=== PATIENT | female | born 1985 | race Caucasian/White ===

== ENCOUNTER → 2017-12-02 10:11 | Outpatient (CLI) | payer BC, SELFPAY ==
--- NOTE | 2017-12-02 10:15 | BI_ITS ---
MAMMOGRAPHY - BILATERAL SCREENING REASON FOR EXAM: Female, 32 years old. Routine annual screening examination. PERTINENT HISTORY: FM HX MOTHER 30, MAT GMA 69, STARTED PROGESTERONE CREAM YESTERDAY (12-01-17), GAIN 10# SINCE 2012 MAMMO-PT ALSO GAVE TWICE SINCE 2012 , PT TESTED NEG FOR JACOB GENE TECHNIQUE: Digital bilateral breast mely (3D mammographic acquisition) in the CC and MLO projections. 2-D mediolateral oblique (MLO) and craniocaudad (CC) views of both breasts were obtained. CAD: Full Field Digital Mammography with Computer Added Detection was performed. COMPARISON: Aug 30 2012 7:39am. Aug 29 2011 1:13pm FINDINGS: Breast Composition: The breasts are heterogeneously dense, which may obscure small masses. There are no dominant masses or suspicious calcifications. No other significant abnormalities are identified. BI/SCREENING MAMM (CAD), BILAT IMPRESSION: Stable bilateral screening mammogram. Yearly follow-up mammogram recommended. (A) ASSESSMENT CATEGORY: BIRADS Category 2: Benign. A letter regarding these results will be sent to the patient by the facility within 30 days. Approximately 10% of breast cancers are not detected by mammography. A normal mammogram should not delay biopsy of a clinically suspicious abnormality. [id number] Electronically Signed: Teresa Basurto MD at 15:23 EDT Tel , Service support ,
== END ==
PROVIDERS: Family Provider Internal Medicine; PCP Internal Medicine; Referring Provider Specialist; Visit Provider Specialist
DX: Z80.3 Family history of malignant neoplasm of breast (principal)
CPT/HCPCS: 77063; 77067

== ENCOUNTER → 2018-12-31 | Outpatient (CLI) | payer BC, SELFPAY ==
--- NOTE | 2018-12-31 11:55 | BI_ITS ---
MAMMOGRAPHY - BILATERAL SCREENING REASON FOR EXAM: Female, 33 years old. Routine annual screening examination. PERTINENT HISTORY: Mother with breast cancer. Grandmother with breast cancer. TECHNIQUE: Digital bilateral breast laila (3D mammographic acquisition) in the CC and MLO projections. 2-D mediolateral oblique (MLO) and craniocaudad (CC) views of both breasts were obtained. CAD: Full Field Digital Mammography with Computer Added Detection was performed. COMPARISON: Comparison is made with prior examination dated December 02, 2017 and August 30, 2012. FINDINGS: Breast Composition: The breasts are heterogeneously dense, which may obscure small masses. There are no dominant masses or suspicious calcifications. No other significant abnormalities are identified. There has been no significant change since the prior study. BI/SCREEN MAMM (CAD) W/LAILA BILAT IMPRESSION: Stable bilateral screening mammogram. Yearly follow-up mammogram recommended. (A) ASSESSMENT CATEGORY: BIRADS Category 1: Negative. A letter regarding these results will be sent to the patient by the facility within 30 days. Approximately 10% of breast cancers are not detected by mammography. A normal mammogram should not delay biopsy of a clinically suspicious abnormality. [id number] Electronically Signed: Lenny Pederson, at 14:08 EDT , Service support ,
== END | disposition home or self-care (01) ==
LOC: OPBI 11:53
PROVIDERS: Family Provider Internal Medicine; PCP Internal Medicine; Referring Provider Specialist; Visit Provider Specialist
DX: Z12.31 Encounter for screening mammogram for malignant neoplasm of breast (principal)
CPT/HCPCS: 77063; 77067

== ENCOUNTER → 2019-04-20 12:52 | Outpatient (CLI) | payer BC, SELFPAY ==
[2019-03-21 16:21] VITALS: BMI 26.9
--- NOTE | 2019-04-20 12:59 | ECHOD_ITS ---
Reason For Study: Chest Pain Procedure This was a 2D Doppler, Color Flow transthoracic echocardiogram. Exam performed in department. Left Ventricle Normal size and thickness. The estimated ejection fraction is 65 %. Normal diastology for age. No regional wall motion abnormalities noted. Right Ventricle Normal size and thickness. Normal systolic function. Atria Normal left atrium. Normal right atrium. Normal atrial septum. Mitral Valve The mitral valve is structurally normal. No prolapse or stenosis seen. Tricuspid Valve Normal tricuspid valve. Trivial tricuspid valve insufficiency. Right ventricular systolic pressure estimated to be 22 mmHg. Aortic Valve Normal aortic valve. Trisinus/trileaflet aortic valve. Pulmonic Valve Normal pulmonic valve. Great Vessels Normal aortic root. Normal arch. Normal inferior vena cava. Inferior vena cava collapse with sniff. Pericardium/Pleural No pericardial effusion. MMode/2D Measurements & Calculations LVIDd: 4.6 cm IVSd: 1.1 cm Ao root diam: 2.8 cm LVIDs: 3.1 cm LVPWd: 0.73 cm RVDd: 3.4 cm FS: 33.0 % LAV(MOD-bp): 28.1 ml LVAd ap4: 26.8 cm2 SV(MOD-sp4): 49.7 ml LAV(MOD-bp) Indexed: 13.9 ml/m2 EDV(MOD-sp4): 76.7 ml LAV(MOD-sp2): 40.3 ml EDV(sp4-el): 78.4 ml LAV(MOD-sp4): 19.7 ml LVAs ap4: 13.9 cm2 ESV(MOD-sp4): 27.1 ml ESV(sp4-el): 26.6 ml EF(MOD-sp4): 64.7 % EF(sp4-el): 66.0 % SV(sp4-el): 51.7 ml LA A4 area: 10.1 cm2 LA dimension(2D): 3.4 cm RA A4 area: 13.0 cm2 Doppler Measurements & Calculations MV E max donald: 66.1 cm/sec Lat Peak E' Donald: 15.0 cm/sec Med Peak E' Donald: 12.3 cm/sec MV A max donald: 46.6 cm/sec E/E' lat: 4.4 E/E' med: 5.4 MV E/A: 1.4 Ao V2 max: 135.0 cm/sec LV V1 max: 110.3 cm/sec PA V2 max: 82.3 cm/sec Ao max P.3 mmHg LV V1 max P.9 mmHg Ao V2 mean: 98.0 cm/sec Ao mean P.1 mmHg Ao V2 VTI: 27.2 cm TR max donald: 205.8 cm/sec TR max P.9 mmHg Interpretation Summary The estimated ejection fraction is 65 %. Normal diastology for age. Trivial tricuspid valve insufficiency. Right ventricular systolic pressure estimated to be 22 mmHg. There is no comparison study available. Ordering Physician: Adrienne Smith Referring Physician: Adrienne Smith Performed By: Vilma Proctor, JILLIAN, RVT
== END ==
PROVIDERS: PCP Internal Medicine; Referring Provider Internal Medicine; Visit Provider Internal Medicine
DX: R07.9 Chest pain, unspecified (principal); R00.2 Palpitations
CPT/HCPCS: 93225; 93226; 93306

== ENCOUNTER → 2020-01-30 11:19 | Outpatient (CLI) | payer BC, SELFPAY ==
[2019-03-21 16:21] VITALS: BMI 26.9
--- NOTE | 2020-01-30 11:23 | BI_ITS ---
MAMMOGRAPHY - BILATERAL SCREENING REASON FOR EXAM: Female, 34 years old. Routine annual screening examination. PERTINENT HISTORY: Mother with breast cancer. Grandmother with breast cancer. TECHNIQUE: Digital bilateral breast laila (3D mammographic acquisition) in the CC and MLO projections. 2-D mediolateral oblique (MLO) and craniocaudad (CC) views of both breasts were obtained. CAD: Full Field Digital Mammography with Computer Added Detection was performed. COMPARISON: Comparison is made with prior study dated 12/31/2018 and 12/02/2017. FINDINGS: Breast Composition: The breasts are heterogeneously dense, which may obscure small masses. There are no dominant masses or suspicious calcifications. No other significant abnormalities are identified. There has been no significant change since the prior study. BI/SCREEN MAMM (CAD) W/LAILA BILAT IMPRESSION: Stable bilateral screening mammogram. Yearly follow-up mammogram recommended. (A) ASSESSMENT CATEGORY: BIRADS Category 1: Negative. A letter regarding these results will be sent to the patient by the facility within 30 days. Approximately 10% of breast cancers are not detected by mammography. A normal mammogram should not delay biopsy of a clinically suspicious abnormality. [id number] Electronically Signed: Lenny Pederson, at 12:04 EST , Service support ,
== END ==
PROVIDERS: PCP Internal Medicine
DX: Z12.31 Encounter for screening mammogram for malignant neoplasm of breast (principal)
CPT/HCPCS: 77063; 77067